=== PATIENT | male | born 1940 | race Two or more races ===

== ENCOUNTER 2020-10-01 13:24 | Inpatient (IN) | payer OTHER ==
[~2020-10-01] VITALS: Ht 170.2 cm; Wt 86.6 kg
[2020-10-01] VITALS (19 sets, daily range): BP systolic 70–144; BP diastolic 41–71
[2020-10-01] MEDS ORDERED: HEPARIN SODIUM (PORCINE) 5000 UNITS/ML 1ML VIAL IV ONE ×2 (13:45)
[2020-10-01 13:54] LABS: Basophils # (auto) 0 10 ^3/uL (0-0.2); Basophils % (auto) 0.1 % (0.0-2.0); Eosinophils # (auto) 0 10 ^3/uL (0-0.8); Hematocrit 48.2 % (41.0-53.0); Hemoglobin 16.1 g/dL (13.5-17.5); Lymphocytes # (auto) 0.7 10 ^3/uL (0.4-5.4); Lymphocytes % (auto) 3.9 % (10.0-50.0); Mean Corpuscular Hemoglobin 29.9 pg (28.0-32.0); Mean Corpuscular Hgb Conc. 33.4 g/dL (32.0-36.0); Mean Corpuscular Volume 89.8 fL (80.0-100.0); Monocytes # (auto) 1.3 10 ^3/uL (0-1.3); Monocytes % (auto) 7.7 % (0.0-12.0); Neutrophils # (auto) 15.4 10 ^3/uL (1.6-8.6); Neutrophils % (auto) 88.3 % (37.0-80.0); Nucleated Red Blood Cells % 0.1 %; Platelet Count (auto) 270 10^3/uL (140-450); Red Blood Cells 5.37 10^6/uL (4.5-5.90); Red Cell Distribution Width 14.6 % (11.8-14.3); White Blood Cell 17.4 10^3/uL (4.4-10.8)
[2020-10-01] MEDS ORDERED: LIDOCAINE 2%HCL (LOCAL ANESTH.) INJ 20ML MDV ONE (14:20)
[2020-10-01] MEDS ORDERED: IOHEXOL 350 MG/ML 100ML IJ ONE (14:20)
[2020-10-01 14:23] LABS: INR 1.05 (0.9-1.15); Partial Thromboplastin Time 29.6 sec (23.0-31.2)
[2020-10-01 14:25] LABS: Albumin 3.5 g/dL (3.4-5.0); Magnesium 2.3 mg/dL (1.6-2.6); Potassium 4.4 mmol/L (3.5-5.1)
[2020-10-01 14:34] LABS: BUN/Creatinine Ratio 12.2; Bilirubin, Total 1.4 mg/dL (0.2-1.0); Total Protein 8.3 g/dL (6.4-8.2)
[2020-10-01] MEDS ORDERED: fentaNYL CITRATE 100 MCG/2 ML VL ONE (14:34)
[2020-10-01] MEDS ORDERED: ANGIOMAX 250 MG VIAL IV ONE (14:34)
[2020-10-01] MEDS ORDERED: MIDAZOLAM HCL 1MG/1ML-2 ML VIAL ONE (14:35)
[2020-10-01] MEDS ORDERED: SODIUM CHL 0.9% 0 ML ONE (14:35)
[2020-10-01] MEDS ORDERED: HEPARIN DRIP/D5W 100UNITS/ML 250 ML IV ONE (14:52)
[2020-10-01] MEDS ORDERED: NITROGLYCERIN 0.4 MG SL TAB SL PRN (15:45)
[2020-10-01] MEDS: SODIUM CHLOR 0.9% PF (SALINE LOCK) 10ML VIAL/SYR IV SCH ×2 (19:48→22:16)
[2020-10-01] MEDS: HEPARIN DRIP/D5W 100UNITS/ML 250 ML IV SCH (19:48)
[2020-10-01] MEDS ORDERED: DEXTROSE (50%) 50ML SYRG IV PRN (21:00)
[2020-10-01] MEDS ORDERED: ONDANSETRON HCL 4 MG/2 ML VIAL IV PRN (21:45)
[2020-10-01] MEDS: InsuLIN REG 1unit/0.01ml Soln (100units/ml) SC SCH (22:00)
[2020-10-01] MEDS: ACCU-CHEK COMFORT CURVE STRIP VI SCH (22:20)
[2020-10-02] VITALS (96 sets, daily range): BP systolic 98–184; BP diastolic 38–98
[2020-10-02 00:53] LABS: Urine Bacteria FEW /hpf (None Seen); Urine Blood 2+ /uL (Negative); Urine Mucus FEW (None Seen); Urine Specific Gravity > 1.050 (1.001-1.035); Urine WBC 2 /hpf (0 - 3)
[2020-10-02 04:44] LABS: Basophils # (auto) 0.1 10 ^3/uL (0-0.2); Basophils % (auto) 0.6 % (0.0-2.0); Eosinophils # (auto) 0 10 ^3/uL (0-0.8); Eosinophils % (auto) 0.1 % (0.0-7.0); Hematocrit 42.4 % (41.0-53.0); Hemoglobin 14.4 g/dL (13.5-17.5); Lymphocytes # (auto) 0.9 10 ^3/uL (0.4-5.4); Lymphocytes % (auto) 5.5 % (10.0-50.0); Mean Corpuscular Volume 88.3 fL (80.0-100.0); Monocytes # (auto) 1.7 10 ^3/uL (0-1.3); Monocytes % (auto) 10.8 % (0.0-12.0); Neutrophils # (auto) 12.9 10 ^3/uL (1.6-8.6); Nucleated Red Blood Cells % 0.1 %; Platelet Count (auto) 169 10^3/uL (140-450); Red Cell Distribution Width 14.3 % (11.8-14.3); White Blood Cell 15.5 10^3/uL (4.4-10.8)
[2020-10-02] MEDS: SODIUM CHLOR 0.9% PF (SALINE LOCK) 10ML VIAL/SYR IV SCH ×3 (05:02→22:25)
[2020-10-02 05:04] LABS: INR 1.08 (0.9-1.15); Partial Thromboplastin Time 44.4 sec (23.0-31.2)
[2020-10-02 05:09] LABS: Potassium 4.1 mmol/L (3.5-5.1)
[2020-10-02 05:20] LABS: Albumin 2.8 g/dL (3.4-5.0); BUN/Creatinine Ratio 17.7; Bilirubin, Total 1.2 mg/dL (0.2-1.0); Calcium 8.8 mg/dL (8.5-10.1); Magnesium 2.3 mg/dL (1.6-2.6); Total Protein 6.5 g/dL (6.4-8.2)
[2020-10-02] MEDS: ACCU-CHEK COMFORT CURVE STRIP VI SCH ×4 (06:39→22:57)
[2020-10-02] MEDS: InsuLIN REG 1unit/0.01ml Soln (100units/ml) SC SCH ×4 (06:40→23:00)
[2020-10-02 08:39] LABS: INR 1.08 (0.9-1.15); Partial Thromboplastin Time 43.3 sec (23.0-31.2)
[2020-10-02] MEDS ORDERED: LOSA50TA7 PO (09:23)
[2020-10-02] MEDS ORDERED: TRIA75TA55 PO (09:23)
[2020-10-02] MEDS ORDERED: GLIP5TAB12 PO (09:23)
[2020-10-02] MEDS ORDERED: LATA0.0019 EACHEYE (09:23)
[2020-10-02] MEDS ORDERED: VERA240T17 PO (09:23)
[2020-10-02] MEDS: PANTOPRAZOLE 40 MG/10 ML VIAL INJ IV SCH (09:45)
[2020-10-02] MEDS ORDERED: OPTISON 3ml Vial for INJ IV ONE ×2 (10:59→11:15)
[2020-10-02 15:31] LABS: INR 1.08 (0.9-1.15); Partial Thromboplastin Time 46.5 sec (23.0-31.2)
[2020-10-02] MEDS: HEPARIN DRIP/D5W 100UNITS/ML 250 ML IV SCH (15:56)
[2020-10-02] MEDS ORDERED: FUROSEMIDE 40 MG/4 ML VIAL IV ONE (16:15)
[2020-10-02] MEDS ORDERED: NITROGLYCERIN 0.2MG/HR TOPICAL PATCH TD ONE (16:45)
[2020-10-02] MEDS: ARTIFICIAL TEARS 15ml EACHEYE PRN (22:26)
[2020-10-02] MEDS: LATANOPROST 0.005 % OPTH(EYE) SOL 2.5ML EACHEYE SCH (22:37)
[2020-10-02 22:52] LABS: INR 1.07 (0.9-1.15); Partial Thromboplastin Time 41.8 sec (23.0-31.2)
[2020-10-03] VITALS (96 sets, daily range): BP systolic 122–185; BP diastolic 37–96
[2020-10-03 04:32] LABS: Basophils # (auto) 0 10 ^3/uL (0-0.2); Basophils % (auto) 0.2 % (0.0-2.0); Eosinophils # (auto) 0.1 10 ^3/uL (0-0.8); Eosinophils % (auto) 0.5 % (0.0-7.0); Hematocrit 39.2 % (41.0-53.0); Hemoglobin 13.5 g/dL (13.5-17.5); Lymphocytes # (auto) 1.1 10 ^3/uL (0.4-5.4); Lymphocytes % (auto) 8.7 % (10.0-50.0); Mean Corpuscular Hemoglobin 30.5 pg (28.0-32.0); Mean Corpuscular Hgb Conc. 34.5 g/dL (32.0-36.0); Mean Corpuscular Volume 88.5 fL (80.0-100.0); Monocytes % (auto) 16.1 % (0.0-12.0); Neutrophils # (auto) 9.2 10 ^3/uL (1.6-8.6); Neutrophils % (auto) 74.5 % (37.0-80.0); Nucleated Red Blood Cells % 0.1 %; Platelet Count (auto) 130 10^3/uL (140-450); Red Blood Cells 4.43 10^6/uL (4.5-5.90); White Blood Cell 12.4 10^3/uL (4.4-10.8)
[2020-10-03 04:41] LABS: Albumin 2.4 g/dL (3.4-5.0); Calcium 8.2 mg/dL (8.5-10.1); Potassium 3.5 mmol/L (3.5-5.1)
[2020-10-03 04:45] LABS: BUN/Creatinine Ratio 19.5; Bilirubin, Total 1.5 mg/dL (0.2-1.0)
[2020-10-03 05:07] LABS: INR 1.11 (0.9-1.15)
[2020-10-03 05:09] LABS: Partial Thromboplastin Time 107.7 sec (23.0-31.2)
[2020-10-03] MEDS: SODIUM CHLOR 0.9% PF (SALINE LOCK) 10ML VIAL/SYR IV SCH ×3 (05:59→22:06)
[2020-10-03] MEDS: ACCU-CHEK COMFORT CURVE STRIP VI SCH ×4 (05:59→22:05)
[2020-10-03] MEDS: InsuLIN REG 1unit/0.01ml Soln (100units/ml) SC SCH ×4 (05:59→22:05)
[2020-10-03] MEDS: NITROGLYCERIN 0.2MG/HR TOPICAL PATCH TD SCH (10:33)
[2020-10-03] MEDS: PANTOPRAZOLE 40 MG/10 ML VIAL INJ IV SCH (10:33)
[2020-10-03] MEDS: ARTIFICIAL TEARS 15ml EACHEYE PRN ×2 (10:34→20:36)
[2020-10-03 12:49] LABS: INR 1.07 (0.9-1.15)
[2020-10-03 12:54] LABS: Partial Thromboplastin Time 75.7 sec (23.0-31.2)
[2020-10-03] MEDS: hydrALAZINE HCL 25 MG TAB PO SCH ×2 (13:05→22:11)
[2020-10-03] MEDS: HEPARIN DRIP/D5W 100UNITS/ML 250 ML IV SCH (18:36)
[2020-10-03 19:54] LABS: INR 1.04 (0.9-1.15); Partial Thromboplastin Time 52.2 sec (23.0-31.2)
[2020-10-03] MEDS: METOPROLOL SUCCINATE XL 50 MG TAB PO SCH (21:20)
[2020-10-03] MEDS: ATORVASTATIN 20 MG TAB PO SCH (22:10)
[2020-10-03] MEDS: LATANOPROST 0.005 % OPTH(EYE) SOL 2.5ML EACHEYE SCH (22:14)
[2020-10-04] VITALS (96 sets, daily range): BP systolic 113–167; BP diastolic 31–93
[2020-10-04 01:36] LABS: INR 1.05 (0.9-1.15); Partial Thromboplastin Time 48.4 sec (23.0-31.2)
[2020-10-04 04:39] LABS: Basophils # (auto) 0 10 ^3/uL (0-0.2); Basophils % (auto) 0.3 % (0.0-2.0); Eosinophils # (auto) 0.2 10 ^3/uL (0-0.8); Eosinophils % (auto) 1.3 % (0.0-7.0); Hematocrit 39.3 % (41.0-53.0); Hemoglobin 13.5 g/dL (13.5-17.5); Lymphocytes % (auto) 9.1 % (10.0-50.0); Mean Corpuscular Hemoglobin 30.3 pg (28.0-32.0); Mean Corpuscular Hgb Conc. 34.4 g/dL (32.0-36.0); Monocytes # (auto) 1.5 10 ^3/uL (0-1.3); Monocytes % (auto) 13.6 % (0.0-12.0); Neutrophils # (auto) 8.5 10 ^3/uL (1.6-8.6); Neutrophils % (auto) 75.7 % (37.0-80.0); Nucleated Red Blood Cells % 0.2 %; Platelet Count (auto) 139 10^3/uL (140-450); Red Blood Cells 4.47 10^6/uL (4.5-5.90); Red Cell Distribution Width 14.3 % (11.8-14.3); White Blood Cell 11.2 10^3/uL (4.4-10.8)
[2020-10-04 04:59] LABS: Potassium 3.3 mmol/L (3.5-5.1)
[2020-10-04 05:06] LABS: Albumin 2.4 g/dL (3.4-5.0); Bilirubin, Total 1.4 mg/dL (0.2-1.0); Calcium 8.7 mg/dL (8.5-10.1)
[2020-10-04] MEDS: hydrALAZINE HCL 25 MG TAB PO SCH ×3 (06:21→22:18)
[2020-10-04] MEDS: ACCU-CHEK COMFORT CURVE STRIP VI SCH ×4 (06:21→22:19)
[2020-10-04] MEDS: SODIUM CHLOR 0.9% PF (SALINE LOCK) 10ML VIAL/SYR IV SCH ×3 (06:21→22:19)
[2020-10-04] MEDS: InsuLIN REG 1unit/0.01ml Soln (100units/ml) SC SCH ×4 (06:22→22:00)
[2020-10-04] MEDS ORDERED: POTASSIUM CHL 20 Meq TABLET PO ONE (07:15)
[2020-10-04] MEDS: ARTIFICIAL TEARS 15ml EACHEYE PRN ×3 (09:05→21:00)
[2020-10-04] MEDS: NITROGLYCERIN 0.2MG/HR TOPICAL PATCH TD SCH (09:08)
[2020-10-04] MEDS: PANTOPRAZOLE 40 MG/10 ML VIAL INJ IV SCH (09:08)
[2020-10-04] MEDS: METOPROLOL SUCCINATE XL 50 MG TAB PO SCH ×2 (09:08→22:18)
[2020-10-04 09:32] LABS: INR 1.04 (0.9-1.15); Partial Thromboplastin Time 53.9 sec (23.0-31.2)
[2020-10-04 15:09] LABS: INR 1.03 (0.9-1.15); Partial Thromboplastin Time 48.8 sec (23.0-31.2)
[2020-10-04] MEDS ORDERED: HEPARIN DRIP/D5W 100UNITS/ML 250 ML IV SCH (16:00)
[2020-10-04] MEDS: LATANOPROST 0.005 % OPTH(EYE) SOL 2.5ML EACHEYE SCH (22:17)
[2020-10-04] MEDS: ATORVASTATIN 20 MG TAB PO SCH (22:19)
[2020-10-05] VITALS (71 sets, daily range): BP systolic 105–172; BP diastolic 31–103
[2020-10-05] MEDS: HEPARIN DRIP/D5W 100UNITS/ML 250 ML IV SCH (00:19)
[2020-10-05 01:19] LABS: INR 1.07 (0.9-1.15)
[2020-10-05 01:25] LABS: Partial Thromboplastin Time 72.2 sec (23.0-31.2)
[2020-10-05 04:07] LABS: Basophils # (auto) 0.1 10 ^3/uL (0-0.2); Basophils % (auto) 0.6 % (0.0-2.0); Eosinophils # (auto) 0.3 10 ^3/uL (0-0.8); Eosinophils % (auto) 2.5 % (0.0-7.0); Hematocrit 37.7 % (41.0-53.0); Hemoglobin 12.9 g/dL (13.5-17.5); Lymphocytes # (auto) 1.4 10 ^3/uL (0.4-5.4); Lymphocytes % (auto) 12.4 % (10.0-50.0); Mean Corpuscular Hemoglobin 30.1 pg (28.0-32.0); Mean Corpuscular Hgb Conc. 34.3 g/dL (32.0-36.0); Mean Corpuscular Volume 87.7 fL (80.0-100.0); Monocytes # (auto) 1.7 10 ^3/uL (0-1.3); Monocytes % (auto) 15.6 % (0.0-12.0); Neutrophils # (auto) 7.6 10 ^3/uL (1.6-8.6); Neutrophils % (auto) 68.9 % (37.0-80.0); Platelet Count (auto) 157 10^3/uL (140-450)
[2020-10-05 04:35] LABS: Albumin 2.2 g/dL (3.4-5.0); Calcium 8.5 mg/dL (8.5-10.1); Potassium 3.6 mmol/L (3.5-5.1)
[2020-10-05 04:38] LABS: BUN/Creatinine Ratio 22.1
[2020-10-05 04:40] LABS: Bilirubin, Total 0.9 mg/dL (0.2-1.0); Total Protein 5.9 g/dL (6.4-8.2)
[2020-10-05] MEDS: SODIUM CHLOR 0.9% PF (SALINE LOCK) 10ML VIAL/SYR IV SCH ×3 (06:00→22:00)
[2020-10-05] MEDS: hydrALAZINE HCL 25 MG TAB PO SCH ×3 (06:23→22:25)
[2020-10-05] MEDS: ACCU-CHEK COMFORT CURVE STRIP VI SCH ×4 (06:30→22:26)
[2020-10-05] MEDS: InsuLIN REG 1unit/0.01ml Soln (100units/ml) SC SCH ×4 (06:31→22:00)
[2020-10-05 09:29] LABS: INR 1.08 (0.9-1.15)
[2020-10-05 09:31] LABS: Partial Thromboplastin Time 112.1 sec (23.0-31.2)
[2020-10-05] MEDS: METOPROLOL SUCCINATE XL 50 MG TAB PO SCH ×2 (09:57→22:26)
[2020-10-05] MEDS: PANTOPRAZOLE 40 MG/10 ML VIAL INJ IV SCH (09:57)
[2020-10-05] MEDS: NITROGLYCERIN 0.2MG/HR TOPICAL PATCH TD SCH (09:57)
[2020-10-05] MEDS ORDERED: LIDOCAINE 1% HCL (LOCAL ANESTH.) INJ 20ML MDV ID ONE (13:00)
[2020-10-05] MEDS ORDERED: LIDOCAINE 1%HCL (LOCAL ANESTH) 10 ML MDV IJ ONE (13:00)
[2020-10-05] MEDS ORDERED: LIDOCAINE 2% (LOCAL ANESTH.) PF 5ml SDV ONE (14:17)
[2020-10-05] MEDS ORDERED: LIDOCAINE 2%HCL (LOCAL ANESTH.) INJ 10ml MDV IJ ONE (14:30)
[2020-10-05] MEDS ORDERED: FUROSEMIDE 40 MG/4 ML VIAL IV ONE (15:30)
[2020-10-05] MEDS ORDERED: HEPARIN 1,000 UNITS/ml 1ML VIAL IV ONE (17:45)
[2020-10-05 19:45] LABS: INR 1.03 (0.9-1.15); Partial Thromboplastin Time 35.5 sec (23.0-31.2)
[2020-10-05] MEDS: ISOSORBIDE MONONITRATE ER 60 MG TAB PO SCH (22:24)
[2020-10-05] MEDS: METOCLOPRAMIDE HCL 5MG/ml INJ 2ml VIAL IV SCH (22:24)
[2020-10-05] MEDS: LATANOPROST 0.005 % OPTH(EYE) SOL 2.5ML EACHEYE SCH (22:24)
[2020-10-05] MEDS: ATORVASTATIN 20 MG TAB PO SCH (22:26)
[2020-10-06] VITALS (24 sets, daily range): BP systolic 93–109; BP diastolic 47–65
[2020-10-06 02:01] LABS: INR 1.07 (0.9-1.15); Partial Thromboplastin Time 48.7 sec (23.0-31.2)
[2020-10-06 05:19] LABS: Basophils # (auto) 0.1 10 ^3/uL (0-0.2); Basophils % (auto) 0.7 % (0.0-2.0); Eosinophils # (auto) 0.3 10 ^3/uL (0-0.8); Eosinophils % (auto) 2.6 % (0.0-7.0); Hematocrit 38.2 % (41.0-53.0); Hemoglobin 13.2 g/dL (13.5-17.5); Lymphocytes # (auto) 1.1 10 ^3/uL (0.4-5.4); Lymphocytes % (auto) 11.1 % (10.0-50.0); Mean Corpuscular Hemoglobin 30.3 pg (28.0-32.0); Mean Corpuscular Hgb Conc. 34.5 g/dL (32.0-36.0); Monocytes # (auto) 1.5 10 ^3/uL (0-1.3); Monocytes % (auto) 14.3 % (0.0-12.0); Neutrophils # (auto) 7.4 10 ^3/uL (1.6-8.6); Neutrophils % (auto) 71.3 % (37.0-80.0); Nucleated Red Blood Cells % 0.7 %; Platelet Count (auto) 180 10^3/uL (140-450); Red Blood Cells 4.34 10^6/uL (4.5-5.90); Red Cell Distribution Width 14.3 % (11.8-14.3); White Blood Cell 10.3 10^3/uL (4.4-10.8)
[2020-10-06 05:43] LABS: Albumin 2.4 g/dL (3.4-5.0); Calcium 8.8 mg/dL (8.5-10.1); Potassium 3.4 mmol/L (3.5-5.1)
[2020-10-06 05:45] LABS: BUN/Creatinine Ratio 20.4
[2020-10-06 05:48] LABS: Bilirubin, Total 0.8 mg/dL (0.2-1.0); Total Protein 6.5 g/dL (6.4-8.2)
[2020-10-06] MEDS: hydrALAZINE HCL 25 MG TAB PO SCH ×3 (06:00→22:00)
[2020-10-06] MEDS: METOCLOPRAMIDE HCL 5MG/ml INJ 2ml VIAL IV SCH ×3 (06:08→20:12)
[2020-10-06] MEDS: ACCU-CHEK COMFORT CURVE STRIP VI SCH ×4 (06:08→22:21)
[2020-10-06] MEDS: SODIUM CHLOR 0.9% PF (SALINE LOCK) 10ML VIAL/SYR IV SCH ×3 (06:08→22:21)
[2020-10-06] MEDS: InsuLIN REG 1unit/0.01ml Soln (100units/ml) SC SCH ×4 (06:09→22:22)
[2020-10-06] MEDS: PANTOPRAZOLE 40 MG/10 ML VIAL INJ IV SCH (09:05)
[2020-10-06] MEDS: NITROGLYCERIN 0.2MG/HR TOPICAL PATCH TD SCH (09:06)
[2020-10-06] MEDS: METOPROLOL SUCCINATE XL 50 MG TAB PO SCH ×2 (09:06→22:25)
[2020-10-06 10:37] LABS: INR 1.1 (0.9-1.15); Partial Thromboplastin Time 67.1 sec (23.0-31.2)
[2020-10-06] MEDS: ISOSORBIDE MONONITRATE ER 60 MG TAB PO SCH ×2 (11:21→22:00)
[2020-10-06] MEDS ORDERED: POTASSIUM CHL 20 Meq TABLET PO ONE (12:30)
[2020-10-06] MEDS: HEPARIN DRIP/D5W 100UNITS/ML 250 ML IV SCH (17:45)
[2020-10-06 17:52] LABS: INR 1.09 (0.9-1.15); Partial Thromboplastin Time 68.5 sec (23.0-31.2)
[2020-10-06] MEDS: MORPHINE SULF INJ 2 MG/ML SYRINGE 1ML IV PRN ×3 (20:13→21:26)
[2020-10-06] MEDS: LATANOPROST 0.005 % OPTH(EYE) SOL 2.5ML EACHEYE SCH (22:21)
[2020-10-06] MEDS: ATORVASTATIN 20 MG TAB PO SCH (22:25)
[2020-10-06 23:43] LABS: INR 1.09 (0.9-1.15)
[2020-10-06 23:51] LABS: Partial Thromboplastin Time 83.9 sec (23.0-31.2)
[2020-10-07] VITALS (40 sets, daily range): BP systolic 96–166; BP diastolic 37–90
[2020-10-07] MEDS: HEPARIN DRIP/D5W 100UNITS/ML 250 ML IV SCH (01:51)
[2020-10-07 04:19] LABS: Basophils # (auto) 0 10 ^3/uL (0-0.2); Basophils % (auto) 0.3 % (0.0-2.0); Eosinophils # (auto) 0.4 10 ^3/uL (0-0.8); Hematocrit 36.5 % (41.0-53.0); Hemoglobin 12.4 g/dL (13.5-17.5); Lymphocytes # (auto) 1.4 10 ^3/uL (0.4-5.4); Lymphocytes % (auto) 11.5 % (10.0-50.0); Mean Corpuscular Hemoglobin 29.9 pg (28.0-32.0); Mean Corpuscular Hgb Conc. 33.9 g/dL (32.0-36.0); Mean Corpuscular Volume 88.1 fL (80.0-100.0); Monocytes # (auto) 1.7 10 ^3/uL (0-1.3); Monocytes % (auto) 14.2 % (0.0-12.0); Neutrophils # (auto) 8.5 10 ^3/uL (1.6-8.6); Nucleated Red Blood Cells % 0.2 %; Platelet Count (auto) 205 10^3/uL (140-450); Red Blood Cells 4.14 10^6/uL (4.5-5.90)
[2020-10-07 04:37] LABS: Albumin 2.3 g/dL (3.4-5.0); Calcium 8.4 mg/dL (8.5-10.1); Potassium 3.7 mmol/L (3.5-5.1)
[2020-10-07 04:41] LABS: BUN/Creatinine Ratio 21.1; Bilirubin, Total 0.5 mg/dL (0.2-1.0); Total Protein 6.3 g/dL (6.4-8.2)
[2020-10-07] MEDS: hydrALAZINE HCL 25 MG TAB PO SCH ×3 (06:00→22:24)
[2020-10-07] MEDS: SODIUM CHLOR 0.9% PF (SALINE LOCK) 10ML VIAL/SYR IV SCH ×3 (06:10→21:29)
[2020-10-07] MEDS: METOCLOPRAMIDE HCL 5MG/ml INJ 2ml VIAL IV SCH ×3 (06:10→21:29)
[2020-10-07] MEDS: ACCU-CHEK COMFORT CURVE STRIP VI SCH ×4 (06:11→21:43)
[2020-10-07] MEDS: InsuLIN REG 1unit/0.01ml Soln (100units/ml) SC SCH ×4 (06:12→21:57)
[2020-10-07 09:43] LABS: INR 1.08 (0.9-1.15)
[2020-10-07 09:58] LABS: Partial Thromboplastin Time 74.7 sec (23.0-31.2)
[2020-10-07] MEDS: ISOSORBIDE MONONITRATE ER 60 MG TAB PO SCH ×2 (10:00→11:01)
[2020-10-07] MEDS: METOPROLOL SUCCINATE XL 50 MG TAB PO SCH ×2 (11:00→21:55)
[2020-10-07] MEDS: PANTOPRAZOLE 40 MG/10 ML VIAL INJ IV SCH (11:00)
[2020-10-07] MEDS: NITROGLYCERIN 0.2MG/HR TOPICAL PATCH TD SCH (11:05)
[2020-10-07 15:10] LABS: INR 1.07 (0.9-1.15); Partial Thromboplastin Time 67.3 sec (23.0-31.2)
[2020-10-07] MEDS ORDERED: IOHEXOL 350 MG/ML 100ML IJ ONE (15:22)
[2020-10-07] MEDS ORDERED: LIDOCAINE 2%HCL (LOCAL ANESTH.) INJ 20ML MDV ONE (15:22)
[2020-10-07] MEDS ORDERED: ANGIOMAX 250 MG VIAL IV ONE ×2 (15:51→16:47)
[2020-10-07] MEDS ORDERED: MIDAZOLAM HCL 1MG/1ML-2 ML VIAL ONE (15:51)
[2020-10-07] MEDS ORDERED: ATROPINE SULF 1 MG/10ml SYR ONE ×2 (15:51→16:49)
[2020-10-07] MEDS ORDERED: fentaNYL CITRATE 100 MCG/2 ML VL ONE (15:51)
[2020-10-07] MEDS ORDERED: SODIUM CHL 0.9% 50 ML ONE ×2 (15:51→16:47)
[2020-10-07] MEDS ORDERED: IODIXANOL 320MG/ML 100ML BTL IV ONE (15:53)
[2020-10-07] MEDS ORDERED: EPINEPHrine HCL 1 MG/10 ML SYRG ONE (16:08)
[2020-10-07] MEDS ORDERED: EPTIFIBATIDE INJ (2MG/ML) 10ML VIAL IV ONE (16:09)
[2020-10-07] MEDS ORDERED: ADENOSINE 6 MG/2 ML INJ IV ONE (16:22)
[2020-10-07] MEDS ORDERED: FUROSEMIDE 20 MG/2 ML VIAL ONE (16:46)
[2020-10-07] MEDS ORDERED: DOPamine 1600MCG/ML D5W 250 ML IV ONE (16:47)
[2020-10-07] MEDS ORDERED: TICAGRELOR 90 MG TAB ONE (17:12)
[2020-10-07] MEDS ORDERED: ASPirin 325 MG TAB ONE (17:13)
[2020-10-07] MEDS ORDERED: DIGOXIN (250MCG/ML) 2 ML AMPULE IV ONE ×2 (18:00→19:00)
[2020-10-07] MEDS: DOPamine 1600MCG/ML D5W 250 ML IV SCH (18:00)
[2020-10-07] MEDS ORDERED: DIGOXIN (250MCG/ML) 2 ML AMPULE ONE (18:06)
[2020-10-07 20:23] LABS: Magnesium 2.5 mg/dL (1.6-2.6); Potassium 4.4 mmol/L (3.5-5.1)
[2020-10-07 20:46] LABS: INR 1.62 (0.9-1.15)
[2020-10-07] MEDS: ATORVASTATIN 20 MG TAB PO SCH (21:54)
[2020-10-07] MEDS: LATANOPROST 0.005 % OPTH(EYE) SOL 2.5ML EACHEYE SCH (21:54)
[2020-10-07] MEDS: TICAGRELOR 90 MG TAB PO SCH (22:23)
[2020-10-07 22:28] LABS: Partial Thromboplastin Time > 139.0 sec (23.0-31.2)
[2020-10-08] VITALS (79 sets, daily range): BP systolic 88–157; BP diastolic 21–95
[2020-10-08] MEDS: ISOSORBIDE MONONITRATE ER 60 MG TAB PO SCH ×3 (00:06→22:00)
[2020-10-08] MEDS: SODIUM CHLOR 0.9% PF (SALINE LOCK) 10ML VIAL/SYR IV SCH ×3 (05:52→21:31)
[2020-10-08] MEDS: METOCLOPRAMIDE HCL 5MG/ml INJ 2ml VIAL IV SCH ×3 (05:55→21:41)
[2020-10-08] MEDS: hydrALAZINE HCL 25 MG TAB PO SCH ×3 (06:00→21:41)
[2020-10-08 06:13] LABS: Basophils # (auto) 0 10 ^3/uL (0-0.2); Basophils % (auto) 0.3 % (0.0-2.0); Eosinophils # (auto) 0 10 ^3/uL (0-0.8); Eosinophils % (auto) 0.2 % (0.0-7.0); Hematocrit 35.3 % (41.0-53.0); Hemoglobin 11.9 g/dL (13.5-17.5); Lymphocytes # (auto) 0.7 10 ^3/uL (0.4-5.4); Lymphocytes % (auto) 5.1 % (10.0-50.0); Mean Corpuscular Hemoglobin 29.9 pg (28.0-32.0); Mean Corpuscular Hgb Conc. 33.8 g/dL (32.0-36.0); Mean Corpuscular Volume 88.5 fL (80.0-100.0); Monocytes # (auto) 1.8 10 ^3/uL (0-1.3); Monocytes % (auto) 12.6 % (0.0-12.0); Neutrophils # (auto) 11.8 10 ^3/uL (1.6-8.6); Neutrophils % (auto) 81.8 % (37.0-80.0); Nucleated Red Blood Cells % 0.2 %; Platelet Count (auto) 242 10^3/uL (140-450); Red Blood Cells 3.99 10^6/uL (4.5-5.90); Red Cell Distribution Width 14.3 % (11.8-14.3); White Blood Cell 14.4 10^3/uL (4.4-10.8)
[2020-10-08] MEDS: ACCU-CHEK COMFORT CURVE STRIP VI SCH ×4 (06:13→21:42)
[2020-10-08] MEDS: InsuLIN REG 1unit/0.01ml Soln (100units/ml) SC SCH ×4 (06:14→21:43)
[2020-10-08 06:38] LABS: INR 1.13 (0.9-1.15)
[2020-10-08 06:47] LABS: Potassium 4.2 mmol/L (3.5-5.1)
[2020-10-08 07:06] LABS: Albumin 2.2 g/dL (3.4-5.0); BUN/Creatinine Ratio 21.5; Bilirubin, Total 0.8 mg/dL (0.2-1.0); Calcium 8.4 mg/dL (8.5-10.1); Total Protein 6.1 g/dL (6.4-8.2)
[2020-10-08 07:09] LABS: Partial Thromboplastin Time 82.8 sec (23.0-31.2)
[2020-10-08] MEDS: NITROGLYCERIN 0.2MG/HR TOPICAL PATCH TD SCH (10:00)
[2020-10-08] MEDS: ASPirin-EC 81 mg tab PO SCH (10:13)
[2020-10-08] MEDS: PANTOPRAZOLE 40 MG/10 ML VIAL INJ IV SCH (10:13)
[2020-10-08] MEDS: TICAGRELOR 90 MG TAB PO SCH ×2 (10:14→21:41)
[2020-10-08] MEDS: DOPamine 1600MCG/ML D5W 250 ML IV SCH (10:15)
[2020-10-08] MEDS: METOPROLOL SUCCINATE XL 50 MG TAB PO SCH (12:04)
[2020-10-08] MEDS: DOXYCYCLINE 100MG/250ML 250 ML IV SCH (12:13)
[2020-10-08 14:22] LABS: INR 1.09 (0.9-1.15)
[2020-10-08] MEDS ORDERED: SODIUM CHLORIDE 0.9% 500 ML IV ONE ×2 (14:30→17:45)
[2020-10-08] MEDS ORDERED: LACTULOSE 20Gm/30ML SOLN PO ONE (14:30)
[2020-10-08] MEDS ORDERED: LIDOCAINE 2% (LOCAL ANESTH.) PF 5ml SDV ONE (16:54)
[2020-10-08] MEDS ORDERED: FUROSEMIDE 20 MG/2 ML VIAL IV ONE (17:45)
[2020-10-08] MEDS: ATORVASTATIN 20 MG TAB PO SCH (21:40)
[2020-10-08] MEDS: LATANOPROST 0.005 % OPTH(EYE) SOL 2.5ML EACHEYE SCH (21:41)
[2020-10-09] VITALS (21 sets, daily range): BP systolic 82–125; BP diastolic 44–72
[2020-10-09] MEDS: DOXYCYCLINE 100MG/250ML 250 ML IV SCH ×3 (00:06→23:37)
[2020-10-09] MEDS: DOPamine 1600MCG/ML D5W 250 ML IV SCH (02:56)
[2020-10-09 04:41] LABS: Potassium 3.5 mmol/L (3.5-5.1)
[2020-10-09 04:49] LABS: Albumin 2.3 g/dL (3.4-5.0); BUN/Creatinine Ratio 21.2; Bilirubin, Total 0.9 mg/dL (0.2-1.0); Calcium 8.2 mg/dL (8.5-10.1)
[2020-10-09 04:54] LABS: Basophils # (auto) 0 10 ^3/uL (0-0.2); Basophils % (auto) 0.4 % (0.0-2.0); Eosinophils # (auto) 0.1 10 ^3/uL (0-0.8); Eosinophils % (auto) 1.1 % (0.0-7.0); Hematocrit 33.1 % (41.0-53.0); Hemoglobin 11.1 g/dL (13.5-17.5); Lymphocytes # (auto) 0.8 10 ^3/uL (0.4-5.4); Lymphocytes % (auto) 6.7 % (10.0-50.0); Mean Corpuscular Hemoglobin 29.7 pg (28.0-32.0); Mean Corpuscular Hgb Conc. 33.5 g/dL (32.0-36.0); Mean Corpuscular Volume 88.9 fL (80.0-100.0); Monocytes # (auto) 1.8 10 ^3/uL (0-1.3); Monocytes % (auto) 15.2 % (0.0-12.0); Neutrophils % (auto) 76.6 % (37.0-80.0); Platelet Count (auto) 220 10^3/uL (140-450); Red Blood Cells 3.72 10^6/uL (4.5-5.90); Red Cell Distribution Width 14.1 % (11.8-14.3); White Blood Cell 11.7 10^3/uL (4.4-10.8)
[2020-10-09] MEDS: hydrALAZINE HCL 25 MG TAB PO SCH ×3 (06:00→21:37)
[2020-10-09] MEDS: METOCLOPRAMIDE HCL 5MG/ml INJ 2ml VIAL IV SCH ×3 (06:58→21:06)
[2020-10-09] MEDS: SODIUM CHLOR 0.9% PF (SALINE LOCK) 10ML VIAL/SYR IV SCH ×3 (06:59→21:07)
[2020-10-09] MEDS: ACCU-CHEK COMFORT CURVE STRIP VI SCH ×4 (06:59→21:11)
[2020-10-09] MEDS: InsuLIN REG 1unit/0.01ml Soln (100units/ml) SC SCH ×4 (07:00→21:27)
[2020-10-09] MEDS: TICAGRELOR 90 MG TAB PO SCH ×2 (08:43→21:08)
[2020-10-09] MEDS: METOPROLOL SUCCINATE XL 50 MG TAB PO SCH (08:43)
[2020-10-09] MEDS: ASPirin-EC 81 mg tab PO SCH (08:43)
[2020-10-09] MEDS: RIVAROXABAN 10 MG TAB PO SCH (08:44)
[2020-10-09] MEDS: ISOSORBIDE MONONITRATE ER 60 MG TAB PO SCH ×2 (08:44→21:08)
[2020-10-09] MEDS: NITROGLYCERIN 0.2MG/HR TOPICAL PATCH TD SCH (08:45)
[2020-10-09] MEDS: PANTOPRAZOLE 40 MG/10 ML VIAL INJ IV SCH (08:45)
[2020-10-09] MEDS: ATORVASTATIN 20 MG TAB PO SCH (21:07)
[2020-10-09] MEDS: LATANOPROST 0.005 % OPTH(EYE) SOL 2.5ML EACHEYE SCH (21:09)
[2020-10-10] VITALS (15 sets, daily range): BP systolic 105–124; BP diastolic 54–68
[2020-10-10] MEDS: hydrALAZINE HCL 25 MG TAB PO SCH ×2 (05:37→14:51)
[2020-10-10] MEDS: METOCLOPRAMIDE HCL 5MG/ml INJ 2ml VIAL IV SCH ×2 (05:37→14:51)
[2020-10-10] MEDS: SODIUM CHLOR 0.9% PF (SALINE LOCK) 10ML VIAL/SYR IV SCH ×2 (05:37→14:51)
[2020-10-10] MEDS: ACCU-CHEK COMFORT CURVE STRIP VI SCH ×2 (06:02→14:52)
[2020-10-10] MEDS: InsuLIN REG 1unit/0.01ml Soln (100units/ml) SC SCH ×2 (06:05→14:52)
[2020-10-10 08:11] LABS: Basophils # (auto) 0.1 10 ^3/uL (0-0.2); Basophils % (auto) 0.6 % (0.0-2.0); Eosinophils # (auto) 0.3 10 ^3/uL (0-0.8); Eosinophils % (auto) 2.6 % (0.0-7.0); Hematocrit 34.3 % (41.0-53.0); Hemoglobin 11.4 g/dL (13.5-17.5); Lymphocytes # (auto) 0.8 10 ^3/uL (0.4-5.4); Lymphocytes % (auto) 6.5 % (10.0-50.0); Mean Corpuscular Hemoglobin 29.3 pg (28.0-32.0); Mean Corpuscular Hgb Conc. 33.2 g/dL (32.0-36.0); Mean Corpuscular Volume 88.2 fL (80.0-100.0); Monocytes # (auto) 1.5 10 ^3/uL (0-1.3); Monocytes % (auto) 12.6 % (0.0-12.0); Neutrophils # (auto) 9.2 10 ^3/uL (1.6-8.6); Neutrophils % (auto) 77.7 % (37.0-80.0); Platelet Count (auto) 265 10^3/uL (140-450); Red Blood Cells 3.88 10^6/uL (4.5-5.90); Red Cell Distribution Width 14.1 % (11.8-14.3); White Blood Cell 11.8 10^3/uL (4.4-10.8)
[2020-10-10 08:29] LABS: Albumin 2.4 g/dL (3.4-5.0); BUN/Creatinine Ratio 24.7; Calcium 8.6 mg/dL (8.5-10.1); Magnesium 2.1 mg/dL (1.6-2.6); Potassium 3.4 mmol/L (3.5-5.1)
[2020-10-10 08:32] LABS: Bilirubin, Total 0.7 mg/dL (0.2-1.0); Total Protein 6.3 g/dL (6.4-8.2)
[2020-10-10] MEDS: PANTOPRAZOLE 40 MG/10 ML VIAL INJ IV SCH (10:02)
[2020-10-10] MEDS: NITROGLYCERIN 0.2MG/HR TOPICAL PATCH TD SCH (10:03)
[2020-10-10] MEDS: METOPROLOL SUCCINATE XL 50 MG TAB PO SCH (10:03)
[2020-10-10] MEDS: ASPirin-EC 81 mg tab PO SCH (10:04)
[2020-10-10] MEDS: RIVAROXABAN 10 MG TAB PO SCH (10:04)
[2020-10-10] MEDS: ISOSORBIDE MONONITRATE ER 60 MG TAB PO SCH (10:04)
[2020-10-10] MEDS: TICAGRELOR 90 MG TAB PO SCH (10:04)
[2020-10-10] MEDS: DOXYCYCLINE 100MG/250ML 250 ML IV SCH (14:51)
== END 2020-10-10 18:10 | disposition home or self-care (01) | DRG 270 ==
LOC: EDBD 13:24 → ER 13:24 → ICU WEST 15:41
PROVIDERS: ADMIT Internal Medicine Cardiovascular Disease; ATTEND Internal Medicine Cardiovascular Disease
PROC: 027337Z Dilation of Coronary Artery, Four or More Arteries with Four or More Drug-eluting Intraluminal Devices, Percutaneous Approach (ICD-10-PCS; principal; 2020-10-07)
PROC: 5A02210 Assistance with Cardiac Output using Balloon Pump, Continuous (ICD-10-PCS; 2020-10-07)
PROC: 4A023N7 Measurement of Cardiac Sampling and Pressure, Left Heart, Percutaneous Approach (ICD-10-PCS; 2020-10-07)
PROC: B2111ZZ Fluoroscopy of Multiple Coronary Arteries using Low Osmolar Contrast (ICD-10-PCS; 2020-10-07)
PROC: B2151ZZ Fluoroscopy of Left Heart using Low Osmolar Contrast (ICD-10-PCS; 2020-10-07)
DX: I21.3 ST elevation (STEMI) myocardial infarction of unspecified site (principal); I50.21 Acute systolic (congestive) heart failure; I13.0 Hypertensive heart and chronic kidney disease with heart failure and stage 1 through stage 4 chronic kidney disease, or unspecified chronic kidney disease; I97.190 Other postprocedural cardiac functional disturbances following cardiac surgery; R09.02 Hypoxemia; E11.22 Type 2 diabetes mellitus with diabetic chronic kidney disease; E78.5 Hyperlipidemia, unspecified; I25.10 Atherosclerotic heart disease of native coronary artery without angina pectoris; E11.40 Type 2 diabetes mellitus with diabetic neuropathy, unspecified; N18.32 Chronic kidney disease, stage 3b; Z20.822 Contact with and (suspected) exposure to COVID-19; I25.5 Ischemic cardiomyopathy; K21.9 Gastro-esophageal reflux disease without esophagitis; I25.2 Old myocardial infarction; Z82.49 Family history of ischemic heart disease and other diseases of the circulatory system; Z87.891 Personal history of nicotine dependence; R00.1 Bradycardia, unspecified; I95.89 Other hypotension
CPT/HCPCS: 33967; 36415; 36600; 71045; 74018; 80053; 80061; 81001; 82805; 82962; 83036; 83735; 84132; 84484; 85025; 85610; 85730; 87081; 87426; 92928; 92929; 93005; 93306; 93458; 96365; 99152; 99153; 99291; C1874; C9113; G0378; J0153; J1815; J2001; J2250; J3490; Q9956; Q9967

== ENCOUNTER → 2021-01-13 | Outpatient (CLI) | payer OTHER ==
[~2021-01-13] MED LIST: ASPI-231 PO; ATO40T PO; CLOP75TA28 PO; DIGO1TAB48 PO; FURO40TA4 PO; GLIP5TAB12 PO; ISOS60TA24 PO; LATA0.0019 EACHEYE; LOSA50TA7 PO; METO25TA36 PO; POTA1TAB61 PO; TRIA75TA55 PO; VERA240T17 PO
[2021-01-13 11:22] VITALS: BP 115/71
[2021-01-13 11:40] VITALS: BP 128/53
[2021-01-13 15:23] LABS: Basophils # (auto) 0.1 10 ^3/uL (0-0.2); Basophils % (auto) 0.8 % (0.0-2.0); Eosinophils # (auto) 0.3 10 ^3/uL (0-0.8); Eosinophils % (auto) 3.2 % (0.0-7.0); Hematocrit 42.9 % (41.0-53.0); Hemoglobin 14.5 g/dL (13.5-17.5); Lymphocytes # (auto) 1.2 10 ^3/uL (0.4-5.4); Lymphocytes % (auto) 11.3 % (10.0-50.0); Mean Corpuscular Hemoglobin 29.2 pg (28.0-32.0); Mean Corpuscular Hgb Conc. 33.8 g/dL (32.0-36.0); Mean Corpuscular Volume 86.4 fL (80.0-100.0); Monocytes # (auto) 0.9 10 ^3/uL (0-1.3); Monocytes % (auto) 8.6 % (0.0-12.0); Neutrophils # (auto) 7.7 10 ^3/uL (1.6-8.6); Neutrophils % (auto) 76.1 % (37.0-80.0); Nucleated Red Blood Cells % 0.1 %; Red Blood Cells 4.97 10^6/uL (4.5-5.90); Red Cell Distribution Width 14.6 % (11.8-14.3); White Blood Cell 10.2 10^3/uL (4.4-10.8)
[2021-01-13 15:35] LABS: BUN/Creatinine Ratio 9.1; Calcium 9.6 mg/dL (8.5-10.1); Potassium 3.4 mmol/L (3.5-5.1)
[2021-01-13 15:41] LABS: INR 1.07 (0.9-1.15); Partial Thromboplastin Time 30.5 sec (23.6-33.0)
== END | disposition home or self-care (01) ==
LOC: Rad HDHVI 10:55
PROVIDERS: ATTEND Internal Medicine Cardiovascular Disease
DX: Z01.812 Encounter for preprocedural laboratory examination (principal); J90 Pleural effusion, not elsewhere classified; I51.7 Cardiomegaly; I70.0 Atherosclerosis of aorta; I50.9 Heart failure, unspecified; R07.9 Chest pain, unspecified; R06.02 Shortness of breath
CPT/HCPCS: 36415; 71046; 80048; 85025; 85610; 85730; 93005; G0463

== ENCOUNTER 2021-01-16 09:54 | Day surgery (SDC) | payer OTHER ==
[~2021-01-16] VITALS: Ht 171.4 cm; Wt 72.6 kg
[~2021-01-16 09:54] MED LIST changes: -LATA0.0019 EACHEYE; -LOSA50TA7 PO; -TRIA75TA55 PO; -VERA240T17 PO
[2021-01-16] MEDS ORDERED: LIDOCAINE 2%HCL (LOCAL ANESTH.) INJ 20ML MDV ONE (10:21)
[2021-01-16] MEDS ORDERED: IOHEXOL 350 MG/ML 100ML IJ ONE ×2 (10:22→11:00)
[2021-01-16] MEDS ORDERED: fentaNYL CITRATE 100 MCG/2 ML VL ONE (10:26)
[2021-01-16] MEDS ORDERED: ANGIOMAX 250 MG VIAL IV ONE (10:26)
[2021-01-16] MEDS ORDERED: SODIUM CHL 0.9% 50 ML ONE (10:26)
[2021-01-16] MEDS ORDERED: MIDAZOLAM HCL 2MG/2ML 2ml VIAL (1mg/ml) ONE (10:26)
[2021-01-16] MEDS ORDERED: CLOPIDOGREL BISULFATE 75 MG TAB ONE (11:34)
== END 2021-01-16 13:52 | disposition home or self-care (01) ==
LOC: CATH 09:54
PROVIDERS: ATTEND Internal Medicine Cardiovascular Disease
DX: I25.10 Atherosclerotic heart disease of native coronary artery without angina pectoris (principal); Z20.822 Contact with and (suspected) exposure to COVID-19; Z98.890 Other specified postprocedural states; Z79.899 Other long term (current) drug therapy
CPT/HCPCS: 93454; C1725; C1760; C1874; C1887; C1894; C9600; C9601; J0583; J1644; J2250; J3010; J7030; Q9967; U0003; 93458; 99152; 99153

== ENCOUNTER → 2021-06-10 | Outpatient (CLI) | payer OTHER ==
[~2021-06-10] MED LIST changes: -ASPI-231 PO; +ASPI1TAB20 PO
[2021-06-10 08:36] VITALS: BP 122/53
[2021-06-10 09:00] VITALS: BP 131/52
[2021-06-10 11:31] LABS: Basophils # (auto) 0.1 10 ^3/uL (0-0.2); Basophils % (auto) 1.5 % (0.0-2.0); Eosinophils # (auto) 0.4 10 ^3/uL (0-0.8); Eosinophils % (auto) 4.5 % (0.0-7.0); Hematocrit 42.3 % (41.0-53.0); Hemoglobin 14.2 g/dL (13.5-17.5); Lymphocytes # (auto) 0.8 10 ^3/uL (0.4-5.4); Lymphocytes % (auto) 9.6 % (10.0-50.0); Mean Corpuscular Hemoglobin 29.4 pg (28.0-32.0); Mean Corpuscular Hgb Conc. 33.7 g/dL (32.0-36.0); Mean Corpuscular Volume 87.4 fL (80.0-100.0); Monocytes # (auto) 1.2 10 ^3/uL (0-1.3); Monocytes % (auto) 15.8 % (0.0-12.0); Neutrophils # (auto) 5.4 10 ^3/uL (1.6-8.6); Neutrophils % (auto) 68.6 % (37.0-80.0); Nucleated Red Blood Cells % 0.1 %; Red Blood Cells 4.84 10^6/uL (4.5-5.90); Red Cell Distribution Width 14.4 % (11.8-14.3); White Blood Cell 7.9 10^3/uL (4.4-10.8)
[2021-06-10 11:34] LABS: BUN/Creatinine Ratio 13.2; Calcium 9.8 mg/dL (8.5-10.1); Potassium 3.8 mmol/L (3.5-5.1)
[2021-06-10 11:35] LABS: INR 1.05 (0.9-1.15); Partial Thromboplastin Time 29.8 sec (23.6-33.0)
== END | disposition home or self-care (01) ==
LOC: Rad HDHVI 08:15
PROVIDERS: ATTEND Internal Medicine Cardiovascular Disease
DX: Z01.812 Encounter for preprocedural laboratory examination (principal); D71 Functional disorders of polymorphonuclear neutrophils
CPT/HCPCS: 36415; 71046; 80048; 85025; 85610; 85730; 93005; G0463

== ENCOUNTER 2021-06-12 06:45 | Day surgery (SDC) | payer OTHER ==
[~2021-06-12] VITALS: Ht 170.2 cm; Wt 68.9 kg
[2021-06-12] MEDS ORDERED: MIDAZOLAM HCL 2MG/2ML 2ml VIAL (1mg/ml) ONE (07:26)
[2021-06-12] MEDS ORDERED: fentaNYL CITRATE 100 MCG/2 ML VL ONE (07:26)
[2021-06-12] MEDS ORDERED: ANGIOMAX 250 MG VIAL IV ONE (07:26)
[2021-06-12] MEDS ORDERED: LIDOCAINE 2%HCL (LOCAL ANESTH.) INJ 20ML MDV ONE (07:26)
[2021-06-12] MEDS ORDERED: SODIUM CHL 0.9% 50 ML ONE (07:26)
[2021-06-12] MEDS ORDERED: CLOPIDOGREL 300 MG TAB ONE (12:07)
== END 2021-06-12 14:40 | disposition home or self-care (01) ==
LOC: CATH 06:45
PROVIDERS: ATTEND Internal Medicine Cardiovascular Disease
DX: E11.51 Type 2 diabetes mellitus with diabetic peripheral angiopathy without gangrene (principal); L97.529 Non-pressure chronic ulcer of other part of left foot with unspecified severity; I10 Essential (primary) hypertension; E78.5 Hyperlipidemia, unspecified; I25.10 Atherosclerotic heart disease of native coronary artery without angina pectoris; I25.2 Old myocardial infarction; Z95.5 Presence of coronary angioplasty implant and graft; Z87.891 Personal history of nicotine dependence; Z82.49 Family history of ischemic heart disease and other diseases of the circulatory system; Z20.822 Contact with and (suspected) exposure to COVID-19
CPT/HCPCS: 36415; 37228; 87426; C1725; C1760; C1769; C1887; C1894; J0583; J1644; J2250; J3010; J7030; U0003; 99152; 99153